=== PATIENT | male | born 1995 | race Hispanic/Latino ===

== ENCOUNTER 2021-10-05 10:07 | Emergency (ER) | payer OTHER ==
[~2021-10-05] VITALS: Ht 182.9 cm; Wt 110.4 kg
[2021-10-05] MEDS ORDERED: PROPARACAINE 0.5% OPHTH SOL 15ML XX ONE (11:30)
[2021-10-05] MEDS ORDERED: FLUORESCEIN OPHTH 1 MG STRIP XX ONE (11:30)
[2021-10-05] MEDS ORDERED: PROPARACAINE 0.5% OPHTH SOL 15ML OU ONE (12:50)
[2021-10-05] MEDS ORDERED: FLUORESCEIN OPHTH 1 MG STRIP OS ONE (12:50)
[2021-10-05 13:50] VITALS: BP 137/80
[2021-10-05] MEDS ORDERED: NEOM1SUS22 OP (13:54)
== END 2021-10-05 14:16 | disposition home or self-care (01) ==
LOC: M ED 10:07
DX: H10.32 Unspecified acute conjunctivitis, left eye (principal); H02.843 Edema of right eye, unspecified eyelid; S05.91XA Unspecified injury of right eye and orbit, initial encounter; W20.8XXA Other cause of strike by thrown, projected or falling object, initial encounter; Y92.9 Unspecified place or not applicable; Y93.9 Activity, unspecified; Y99.9 Unspecified external cause status